=== PATIENT | male | born 1975 | race Caucasian/White ===

== ENCOUNTER → 2018-11-01 11:22 | Outpatient (CLI) | payer OTHER, SELFPAY ==
--- NOTE | 2018-11-01 | DI.RAD.S_ITS ---
PROCEDURE: XR CERVICAL SPINE 4V OR 5V INDICATIONS: NECK PAIN TECHNIQUE: 5 views of the cervical spine were acquired. COMPARISON: None. FINDINGS: Bones: No fractures or dislocations to the T1 level. No suspicious bony lesions. There is normal range of motion between flexion and extension, with preserved normal bony alignment. Soft tissues: Prevertebral soft tissues are normal in thickness. IMPRESSION: Degenerative disc disease is mild along the cervical spine and best seen at C6-7, but without associated subluxation or evidence of expected spinal/foraminal stenosis. Dictated by: Harshad Harrell M.D. on 11/01/2018 at 12:40 Approved by: Harshad Harrell M.D. on 11/01/2018 at 12:40
== END ==
PROVIDERS: Family Provider Family Medicine; PCP Family Medicine; Visit Provider Family Medicine
DX: M50.323 Other cervical disc degeneration at C6-C7 level (principal)
CPT/HCPCS: 72050